=== PATIENT | female | born 1985 | race Hispanic/Latino ===

== ENCOUNTER 2018-12-13 19:13 | Emergency (ER) | payer OTHER ==
[2018-12-13 19:25] VITALS: BP 122/77; PULSE 86; RESP 18; TEMP 97.8; O2SAT 99
[2018-12-13] MEDS ORDERED: Lidocaine 1% (10 ml) Inj INFIL ONE (19:37)
[2018-12-13] MEDS ORDERED: Lidocaine 1% Inj (20ml) ONE (19:39)
[2018-12-13] MEDS ORDERED: Lidocaine 1% Inj (20ml) INFIL ONE (20:15)
--- NOTE | 2018-12-13 20:19 | ED PDOC ---
HPI: Wound Care - HPI Time Seen by Provider: 12/13/18 19:31 Chief Complaint (Nursing): Abnormal Skin Integrity Chief Complaint (Provider): Abnormal Skin Integrity History Per: Patient Exam Limitations: no limitations Onset/Duration Of Symptoms: Mins (just prior to arrival) Current Symptoms Are (Timing): Still Present Location Of Injury: Left: Hand Severity: Moderate Additional Complaint(s): 33 year old female 24x weeks presents to the ED for wound care. Patient states that she accidentally cut her left hand with a knife just prior to arrival. Patient denies having any complaints. Tetanus is up to date. PMD: None provided. Past Medical History Reviewed: Historical Data, Nursing Documentation, Vital Signs Vital Signs: Last Vital Signs Temp 97.8 F 12/13/18 19:22 Pulse 86 12/13/18 19:22 Resp 18 12/13/18 19:22 BP 122/77 12/13/18 19:22 Pulse Ox 99 12/13/18 19:22 ROSE Report Viewed: Yes - Medical History PMH: No Chronic Diseases - Family History Family History: States: No Known Family Hx - Social History Current smoker - smoking cessation education provided: No Alcohol: None Drugs: Denies - Immunization History Hx Tetanus Toxoid Vaccination: Yes - Allergies Allergies/Adverse Reactions: Allergies Allergy/AdvReac Type Severity Reaction Status Date / Time cefaclor [From Ceclor] Allergy ANAPHYLAXIS Verified 12/13/18 19:21 Cephalosporins Allergy ANAPHYLAXIS Verified 12/13/18 19:21 Penicillins Allergy ANAPHYLAXIS Verified 12/13/18 19:21 Review of Systems ROS Statement: Except As Marked, All Systems Reviewed And Found Negative Musculoskeletal: Positive for: Other (left hand laceration) Physical Exam - Reviewed Nursing Documentation Reviewed: Yes Vital Signs Reviewed: Yes - Physical Exam Appears: Positive for: Well, Non-toxic, No Acute Distress Head Exam: Positive for: ATRAUMATIC, NORMOCEPHALIC Skin: Positive for: Normal Color, Warm, Dry Pulses-Radial (L): 2+ Pulses-Radial (R): 2+ Extremity: Positive for: Capillary Refill (left hand: <2 seconds), Other (1.5 cm jagged superficial laceration to the first interdigital web space. Full ROM actively of all fingers. (-) active bleeding. ) Neurologic/Psych: Positive for: Alert, Oriented (3x) - ECG O2 Sat by Pulse Oximetry: 99 (RA) Pulse Ox Interpretation: Normal Procedure: Wound Repair - Time Out Time Out: Side verified, Site verified, Patient ID confirmed, Sterile procedures obs. - Consent Obtained Consent obtained: Emergent consent implied - Performed by Performed by: Mid-level Provider (Paulino TUCKER) - Location Location:: Left, Hand Finger:: Left Shape:: Linear Dimensions Length cm: 2 Depth:: Epidermis - Anesthetic Technique Anesthetic Technique: Regional block Local/Regional Anesthetic:: Lidocaine 1% - Irrigated Irrigated with ml of normal saline: 100 - Complexity Complexity:: Simple (one layer) - Wound repair method Sutures:: Size (5-0), Type (ethilon), Technique (simple interrupted) - Patient tolerated procedure Patient Tolerated Procedure:: Well Medical Decision Making Medical Decision Makin:31 Initial impression: 33 year old female with a hand laceration Initial plan: * laceration repair Scribe Attestation: Documented byVee Sanchez, acting as a scribe for Camilo Bee. Provider Scribe Attestation: All medical record entries made by the Scribe were at my direction and personally dictated by me. I have reviewed the chart and agree that the record accurately reflects my personal performance of the history, physical exam, medical decision making, and the department course for this patient. I have also personally directed, reviewed, and agree with the discharge instructions and disposition. Disposition - Clinical Impression Clinical Impression: Hand laceration - Patient ED Disposition Is Patient to be Admitted: No - Disposition Referrals: Pamela Austin [Outside] Disposition: Routine/Home Disposition Time: 20:34 Condition: IMPROVED Additional Instructions: SUTURE REMOVAL IN 7-10 DAYS NIEVES STINSON, thank you for letting us take care of you today. Your provider was Maryjane Graham MD and you were treated for LT HAND INJURY. The emergency medical care you received today was directed at your acute symptoms. If you were prescribed any medication, please fill it and take as directed. It may take several days for your symptoms to resolve. Return to the Emergency Department if your symptoms worsen, do not improve, or if you have any other problems. Please contact your doctor or call one of the physicians/clinics you have been referred to that are listed on the Patient Visit Information form that is included in your discharge packet. Bring any paperwork you were given at discharge with you along with any medications you are taking to your follow up visit. Our treatment cannot replace ongoing medical care by a primary care provider outside of the emergency department. Thank you for allowing the [facility] team to be part of your care today. If you had an X-Ray or CT scan: A Radiologist will review the ED reading if any change in treatment is needed we will contact you. If you had a blood, urine, or wound culture: It will take several days for the results, if any change in treatment is needed we will contact you. If you had an STI test: It will take 48 hours for the results. Please call after 1 week if you have not heard back. Instructions: Wound Care (DC), Laceration Repair With Stitches (DC) Forms: [employer] ([place])
== END 2018-12-13 21:03 | disposition home or self-care (01) ==
LOC: H.ER 19:13
DX: S61.412A Laceration without foreign body of left hand, initial encounter (principal); W26.0XXA Contact with knife, initial encounter; Y92.89 Other specified places as the place of occurrence of the external cause; Z88.0 Allergy status to penicillin